=== PATIENT | female | born 1995 ===

== ENCOUNTER → 2018-08-24 20:50 | Outpatient (REF) | payer OTHER, SELFPAY ==
[2018-08-24 22:09] LABS: HCG Quantitative /Beta subunit 28017 mIU/mL
== END ==
LOC: LAB 20:50
PROVIDERS: Visit Provider Nurse Practitioner Obstetrics & Gynecology
DX: Z32.01 Encounter for pregnancy test, result positive (principal)
CPT/HCPCS: 84702